=== PATIENT | female | born 1995 | race Caucasian/White ===

== ENCOUNTER 2017-01-30 11:21 | Emergency (ER) | payer SELFPAY ==
[~2017-01-30] VITALS: Ht 160 cm; Wt 102.5 kg
[~2017-01-30 11:21] MED LIST: IBUP-1542 PO; NITR-58 PO
[2017-01-30 11:29] VITALS: Ht 160 cm; Wt 102.5 kg
--- NOTE | 2017-01-30 12:08 | ERD ---
ER Documentation Chief Complaint Date/Time DATE: 01/30/17 TIME: 12:07 Chief Complaint VAG BLEED X 3 MONTHS HPI This 21-year-old female who presents the emergency department today complaining of vaginal bleeding for the past 3 months. Patient states that for the past year she has had irregular menstrual cycles and vaginal bleeding. States that she went [facility] months ago and was told she had PID was given antibiotics. States that her bleeding did slow down somewhat after that. States she has not been able to get into see her press writer. States she has one sexual partner. Denies any pain currently. Denies any dysuria, fevers or chills. ROS All systems reviewed and are negative except as per history of present illness. Medications Home Meds Active Scripts Naproxen* (Naprosyn*) 500 Mg Tablet, 500 MG PO BID Y for PAIN AND/OR INFLAMMATION, #30 TAB Prov:KENYON HINOJOSA PA-C 01/30/17 Ibuprofen* (Motrin*) 600 Mg Tab, 600 MG PO Q6H Y for PAIN AND OR ELEVATED TEMP, #30 Prov:CRYSTAL CARRILLO RECREATION PROGRAMMER 04/06/15 Nitrofurantoin Monohyd Macrocr* (Macrobid*) 100 Mg Capsr, 100 MG PO BID for 7 Days, CAP Prov:CRYSTAL CARRILLO RECREATION PROGRAMMER 04/06/15 Allergies Allergies: Coded Allergies: No Known Allergy (Unverified , 04/06/15) PMhx/Soc Hx Alcohol Use: No Hx Substance Use: No Hx Tobacco Use: No Physical Exam Vitals Vital Signs Date Time Temp Pulse Resp B/P Pulse Ox O2 Delivery O2 Flow Rate FiO2 01/30/17 11:29 98.4 96 18 133/74 96 Physical Exam Const: Obese, no acute distress Head: Atraumatic Eyes: Normal Conjunctiva ENT: Normal External Ears, Nose and Mouth. Neck: Full range of motion..~ No meningismus. Resp: Clear to auscultation bilaterally Cardio: Regular rate and rhythm, no murmurs Abd: Soft, mild pelvic tenderness, non distended. Normal bowel sounds. No specific tenderness McBurney Skin: No petechiae or rashes Back: No midline or flank tenderness Ext: No cyanosis, or edema Neur: Awake and alert Psych: Normal Mood and Affect Result Diagram: 01/30/17 1230 Results 24 hrs Laboratory Tests Test 01/30/17 12:30 01/30/17 12:49 White Blood Count 7.410^3/ul Red Blood Count 4.5910^6/ul Hemoglobin 12.1g/dl Hematocrit 37.5% Mean Corpuscular Volume 81.7fl Mean Corpuscular Hemoglobin 26.4pg Mean Corpuscular Hemoglobin Concent 32.3g/dl Red Cell Distribution Width 14.4% Platelet Count 22511^3/UL Mean Platelet Volume 11.1fl Neutrophils % 49.7% Lymphocytes % 41.6% Monocytes % 5.3% Eosinophils % 2.8% Basophils % 0.5% Nucleated Red Blood Cells % 0.0/100WBC Neutrophils # 3.710^3/ul Lymphocytes # 3.110^3/ul Monocytes # 0.410^3/ul Eosinophils # 0.210^3/ul Basophils # 0.010^3/ul Nucleated Red Blood Cells # 0.010^3/ul Bedside Urine pH (LAB) 7.0 Bedside Urine Protein (LAB) 3+ Bedside Urine Glucose (UA) 0.1% Bedside Urine Ketones (LAB) Negative Bedside Urine Blood 3+ Bedside Urine Nitrite (LAB) Negative Bedside Urine Leukocyte Esterase (L Negative DIAGNOSTIC IMAGING REPORT Patient: KVNG NEGRO : 1995 Age: 21 Sex: F MR #: [id number] DOS: 01/30/17 0000 Ordering MD: KENYON HINOJOSA PA-C Location: [facility] Room/Bed: PROCEDURE: US Pelvis. CLINICAL INDICATION: 3-month history of vaginal bleeding. TECHNIQUE: Multiple sonographic images of the pelvis were obtained utilizing a transabdominal and endovaginal technique. The images were reviewed on a PACS workstation. COMPARISON: 04/06/2015. FINDINGS: The uterus is visualized and measures 7.3 x 3.5 x 4.1 cm. The endometrial echo complex is normal and measures 8.0 mm. There is no evidence for free fluid. The right ovary has a normal echotexture and measures 3.1 x 1.7 x 2.0 cm. The left ovary has a normal echotexture and measures 4.0 x 2.8 x 3.6 cm. There is a 3.5 x 2.7 x 2.5 cm septated left ovarian cyst. No adnexal masses are noted. IMPRESSION: 1. 3.5 x 2.7 x 2.5 cm septated left ovarian cyst. 2. The uterus is unremarkable in appearance. RPTAT: [facility] Benny Kariim Physician Date Time Electronically viewed and signed by Benny Karimi Physician on 01/30/2017 13: 15 JH/ CC: KEYNON HINOJOSA PA-C Procedures/MDM Is a 21-year-old female presents to the emergency department today complaining of vaginal bleeding for the past 3 months. Patient had been seen at [facility] months ago but never followed up with an press writer. Given patient's complaints I did obtain laboratory work as well as imaging CBC shows no elevated white blood cell count. She is not anemic. Platelets are within normal limits. UA is negative for infection. There is 3+ blood. There is a small amount of glucose. Negative ketones. Urine test is negative Non-OB ultrasound shows a 3.5 x 2.72.5 cm septated left ovarian cyst. There is no evidence or free fluid. There are no adnexal masses. Uterus is unremarkable. I have low suspicion for ectopic , tubo-ovarian abscess, ovarian torsion. Patient has no indication of anemia. There is no indication for transfusion. I explained to the patient that she does need to follow-up with her [facility]. Patient denies any pain currently. She will be given a prescription for Naprosyn for any pain that she has. Patient symptoms at this time is consistent with dysfunctional uterine bleeding. At this time the patient is stable for discharge and outpatient management. Patient should follow up with their PCP in the next 1-2 days. They may return to the emergency department sooner for any persistent or worsening of symptoms. Patient understood and agreed with the plan. Departure Diagnosis: Primary Impression: Vaginal bleeding Condition: Fair KENYON HINOJOSA PA-C Jan 30, 2017 12:08
[2017-01-30 12:44] LABS: URINE BLOOD (Dip) POC 3+ (NEGATIVE)
[2017-01-30 12:54] LABS: BASOPHILS % 0.5 % (0.0-2.0); EOSINOPHILS # 0.2 10^3/ul (0.0-0.5); EOSINOPHILS % 2.8 % (0.0-7.0); HEMATOCRIT 37.5 % (37.0-47.0); HEMOGLOBIN 12.1 g/dl (12.0-16.0); LYMPHOCYTES # 3.1 10^3/ul (0.8-2.9); LYMPHOCYTES % 41.6 % (15.0-51.0); MEAN CORPUSCULAR HEMOGLOBIN 26.4 pg (29.0-33.0); MEAN CORPUSCULAR HGB CONC 32.3 g/dl (32.0-37.0); MEAN CORPUSCULAR VOLUME 81.7 fl (82.0-101.0); MEAN PLATELET VOLUME 11.1 fl (7.4-10.4); MONOCYTE # 0.4 10^3/ul (0.3-0.9); MONOCYTES % 5.3 % (0.0-11.0); NEUTROPHIL # 3.7 10^3/ul (1.6-7.5); NEUTROPHILS % 49.7 % (39.0-77.0); PLATELET COUNT 364 10^3/UL (140-415); RED BLOOD COUNT 4.59 10^6/ul (4.20-5.40); RED CELL DISTRIBUTION WIDTH 14.4 % (11.5-14.5); WHITE BLOOD COUNT 7.4 10^3/ul (4.8-10.8)
--- NOTE | 2017-01-30 13:16 | RADRPT ---
PROCEDURE: US Pelvis. CLINICAL INDICATION: 3-month history of vaginal bleeding. TECHNIQUE: Multiple sonographic images of the pelvis were obtained utilizing a transabdominal and endovaginal technique. The images were reviewed on a PACS workstation. COMPARISON: 04/06/2015. FINDINGS: The uterus is visualized and measures 7.3 x 3.5 x 4.1 cm. The endometrial echo complex is normal and measures 8.0 mm. There is no evidence for free fluid. The right ovary has a normal echotexture and measures 3.1 x 1.7 x 2.0 cm. The left ovary has a normal echotexture and measures 4.0 x 2.8 x 3.6 c m. There is a 3.5 x 2.7 x 2.5 cm septated left ovarian cyst. No adnexal masses are noted. IMPRESSION: 1. 3.5 x 2.7 x 2.5 cm septated left ovarian cyst. 2. The uterus is unremarkable in appearance. RPTAT: [facility] Physician César Date Time Electronically viewed and signed by Physician César on 01/30/2017 13:15 /
[2017-01-30] MEDS ORDERED: NAPR-260 PO (14:01)
[2017-01-30 15:39] VITALS: BP 135/72; PULSE 75; RESP 18; TEMP 98.4
[2017-02-04 16:11] LABS: URINE BLOOD (Dip) POC 3+ (NEGATIVE)
== END 2017-01-30 15:41 | disposition home or self-care (01) ==
LOC: FTE 11:21
DX: N93.8 Other specified abnormal uterine and vaginal bleeding (principal); R10.2 Pelvic and perineal pain
CPT/HCPCS: 76830; 76856; 81003; 85025

== ENCOUNTER 2017-03-24 03:22 | Emergency (ER) | payer BC ==
[~2017-03-24] VITALS: Ht 160 cm; Wt 100.0 kg
[~2017-03-24 03:22] MED LIST changes: +NAPR-260 PO
[2017-03-24 03:29] VITALS: Ht 160 cm; Wt 100.0 kg
--- NOTE | 2017-03-24 03:55 | ERD ---
ER Documentation Chief Complaint Date/Time DATE: 03/24/17 TIME: 03:52 Chief Complaint c/o pelvic pain x 1 wk. Had bloody discharge this a.m. x 1 episode. HPI 1-year-old female presents here to emergency department for complaints of pelvic pain for 1 week. Patient was diagnosed to have an ovarian cyst. Patient has had prolonged menstruation, is currently on control to control her bleeding. Patient's complaint of pelvic pain, cramping pain, 8/10 scale, intermittent pain, not as 4/10 scale. Patient started to pass a past a tissue from her vaginal area this morning, with blood. Patient denies any fever chills. Patient denies any hematuria or dysuria. ROS All systems reviewed and are negative except as per history of present illness. Medications Home Meds Active Scripts Naproxen* (Naprosyn*) 500 Mg Tablet, 500 MG PO BID Y for PAIN AND/OR INFLAMMATION, #30 TAB Prov:KENYON HINOJOSA PA-C 01/30/17 Ibuprofen* (Motrin*) 600 Mg Tab, 600 MG PO Q6H Y for PAIN AND OR ELEVATED TEMP, #30 Prov:CRYSTAL CARRILLO. PHYSICIAN CODER 04/06/15 Nitrofurantoin Monohyd Macrocr* (Macrobid*) 100 Mg Capsr, 100 MG PO BID for 7 Days, CAP Prov:CRYSTAL CARRILLO. PHYSICIAN CODER 04/06/15 Allergies Allergies: Coded Allergies: No Known Allergy (Unverified , 04/06/15) PMhx/Soc Medical and Surgical Hx: pt denies Medical Hx, pt denies Surgical Hx Hx Alcohol Use: No Hx Substance Use: No Hx Tobacco Use: No Smoking Status: Never smoker FmHx Family History: No coronary disease, No diabetes, No other Physical Exam Vitals Vital Signs Date Time Temp Pulse Resp B/P Pulse Ox O2 Delivery O2 Flow Rate FiO2 03/24/17 03:29 98.8 116 20 143/80 98 Physical Exam GENERAL: The patient is well developed and appropriate for usual state of health, in no apparent distress. CHEST: Clear to auscultation bilaterally. There are no rales, wheezes or rhonchi. HEART: Regular rate and rhythm. No murmurs, clicks, rubs or gallops. No S3 or S4. ABDOMEN: Soft, nontender and nondistended. Good bowel sounds. No rebound or guarding. No gross peritonitis. No gross organomegaly or masses. No Roque sign or McBurney point tenderness. BACK: No midline or flank tenderness. EXTREMITIES: Equal pulses bilaterally. There is no peripheral clubbing, cyanosis or edema. No focal swelling or erythema. Full range of motion. Grossly neurovascularly intact. NEURO: Alert and oriented. Cranial nerves 2-12 intact. Motor strength in all 4 extremities with 5/5 strength. Sensation grossly intact. Normal speech and gait. SKIN: There is no apparent rash or petechia. The skin is warm and dry. HEMATOLOGIC AND LYMPHATIC: There is no evidence of excessive bruising or lymphedema. No gross cervical, axillary, or inguinal lymphadenopathy. Result Diagram: 03/24/17 0407 Results 24 hrs Laboratory Tests Test 03/24/17 04:07 White Blood Count 14.810^3/ul Red Blood Count 4.5810^6/ul Hemoglobin 11.5g/dl Hematocrit 36.6% Mean Corpuscular Volume 79.9fl Mean Corpuscular Hemoglobin 25.1pg Mean Corpuscular Hemoglobin Concent 31.4g/dl Red Cell Distribution Width 13.9% Platelet Count 52969^3/UL Mean Platelet Volume 11.0fl Neutrophils % 80.1% Lymphocytes % 13.5% Monocytes % 5.6% Eosinophils % 0.2% Basophils % 0.3% Nucleated Red Blood Cells % 0.0/100WBC Neutrophils # 11.810^3/ul Lymphocytes # 2.010^3/ul Monocytes # 0.810^3/ul Eosinophils # 0.010^3/ul Basophils # 0.010^3/ul Nucleated Red Blood Cells # 0.010^3/ul Urine Color YELLOW Urine Clarity SLIGHTLY CLOUDY Urine pH 5.0 Urine Specific Martha 1.023 Urine Ketones NEGATIVEmg/dL Urine Nitrite NEGATIVEmg/dL Urine Bilirubin NEGATIVEmg/dL Urine Urobilinogen NEGATIVEmg/dL Urine Leukocyte Esterase NEGATIVELeu/ul Urine Microscopic RBC > 182/HPF Urine Microscopic WBC 5/HPF Urine Squamous Epithelial Cells FEW/HPF Urine Mucus FEW/HPF Urine Hemoglobin 3+mg/dL Urine Glucose NEGATIVEmg/dL Urine Total Protein 2+mg/dl Beta HCG, Quantitative < 2.4mIU/ml PROCEDURE: US Pelvis CLINICAL INDICATION: Vaginal bleeding TECHNIQUE: Sonographic evaluation of the pelvis was performed utilizing both transabdominal and transvaginal technique. Curved array transabdominal transducer technique as well as a high frequency endovaginal probe was utilized. Images were reviewed on the high-resolution PACS workstation. COMPARISON: Pelvic ultrasound dated 01/30/2017 FINDINGS: The uterus is normal in size, echogenicity, and morphology measuring 9.1 x 4.2 x 6.4 cm in dimension. The uterus is anteverted in normal position. The endometrium is normal for a menstrual age female measuring 6.0 mm in diameter. The normal trilaminar stripe of the endometrium is preserved. The right ovary measures 2.6 x 1.7 x 2.0 cm in dimension. The left ovary measures 3.2 x 2.7 x 2.9 cm in dimension. There is a simple appearing 2.4 cm left ovarian cyst. The ovaries are symmetric in size, echogenicity, and morphology. Normal Doppler flow is demonstrated to both ovaries. There are no adnexal masses. There is no significant free fluid in the pelvis. IMPRESSION: Unremarkable ultrasound of the pelvis. RPTAT: HH .Renu Boudreaux MD, MD Date Time Electronically viewed and signed by .Renu Boudreaux MD, MD on 03/24/2017 05 :07 .G/ CC: TIANNA ESPINOZA PHYSICIAN CODER Procedures/MDM Medical Decision Making: Symptoms of pelvic pain most likely is consistent with the passing of possible ovarian cyst. The tissue that she passed most likely is ovarian cyst, it is almost the same size of the previously seen ovarian cyst in the ultrasound. there is low suspicion for abdominal emergencies at this time. Patients abdominal exam is normal at this time. Patients radiology exam does not show any abdominal emergencies at this time. There is low suspicion for appendicitis, cholecystitis, abdominal aortic aneurysms or peritonitis at this time. There is low suspicion for sepsis. Patient appears well and is hemodynamically stable. Disposition: Home. Condition: Stable Prescription for Ibuprofen, [place] Instructions: Patient is advised to take medications as prescribed. Patient is advised to rest, increase fluid intake and do brat diet for next 1-2 days and progress as tolerated. Patient is advised that if symptoms are worse, severe abdominal pain, uncontrolled vomiting, high fever, severe flank pain, worst signs and symptoms, to return to the emergency department immediately. Otherwise, patient can follow up with primary care doctor in 5-7 days. Disclaimer: Inadvertent spelling and grammatical errors are likely due to EHR/ dictation software use and do not reflect on the overall quality of patient care. Also, please note that the electronic time recorded on this note does not necessarily reflect the actual time of the patient encounter. How Departure Diagnosis: Primary Impression: Pelvic pain Additional Impression: Vaginal bleeding Condition: Stable Patient Instructions: Pelvic Pain, Unknown Cause Additional Instructions: Patient is advised to take medications as prescribed. Patient is advised to rest , increase fluid intake and do brat diet for next 1-2 days and progress as tolerated. Patient is advised that if symptoms are worse, severe abdominal pain , uncontrolled vomiting, high fever, severe flank pain, worst signs and symptoms , to return to the emergency department immediately. Otherwise, patient can follow up with primary care doctor in 5-7 days. TIANNA ESPINOZA NP Mar 24, 2017 03:55
[2017-03-24 04:26] LABS: BASOPHILS % 0.3 % (0.0-2.0); EOSINOPHILS % 0.2 % (0.0-7.0); HEMATOCRIT 36.6 % (37.0-47.0); HEMOGLOBIN 11.5 g/dl (12.0-16.0); LYMPHOCYTES % 13.5 % (15.0-51.0); MEAN CORPUSCULAR HEMOGLOBIN 25.1 pg (29.0-33.0); MEAN CORPUSCULAR HGB CONC 31.4 g/dl (32.0-37.0); MEAN CORPUSCULAR VOLUME 79.9 fl (82.0-101.0); MONOCYTE # 0.8 10^3/ul (0.3-0.9); MONOCYTES % 5.6 % (0.0-11.0); NEUTROPHIL # 11.8 10^3/ul (1.6-7.5); NEUTROPHILS % 80.1 % (39.0-77.0); PLATELET COUNT 366 10^3/UL (140-415); RED BLOOD COUNT 4.58 10^6/ul (4.20-5.40); RED CELL DISTRIBUTION WIDTH 13.9 % (11.5-14.5); WHITE BLOOD COUNT 14.8 10^3/ul (4.8-10.8)
[2017-03-24 04:58] LABS: ADD UMIC YES; UR ASCORBIC ACID NEGATIVE (NEGATIVE); UR BILIRUBIN (Dip) NEGATIVE (NEGATIVE); UR BLOOD (Dip) 3+ mg/dL (NEGATIVE); UR CLARITY SLIGHTLY CLOUDY (CLEAR); UR COLOR YELLOW (YELLOW); UR GLUCOSE (Dip) NEGATIVE (NEGATIVE); UR KETONES (Dip) NEGATIVE (NEGATIVE); UR LEUKOCYTE ESTERASE (Dip) NEGATIVE Leu/ul (NEGATIVE); UR MUCUS FEW /HPF (NONE SEEN); UR NITRITE (Dip) NEGATIVE (NEGATIVE); UR RBC > 182 /HPF (0-5); UR SPECIFIC GRAVITY (Dip) 1.023 (1.003-1.030); UR SQUAMOUS EPITHELIAL CELL FEW /HPF (FEW); UR TOTAL PROTEIN (Dip) 2+ mg/dl (NEGATIVE); UR UROBILINOGEN (Dip) NEGATIVE (NEGATIVE)
--- NOTE | 2017-03-24 05:07 | RADRPT ---
PROCEDURE: US Pelvis CLINICAL INDICATION: Vaginal bleeding TECHNIQUE: Sonographic evaluation of the pelvis was performed utilizing both transabdominal and tr ansvaginal technique. Curved array transabdominal transducer technique as well as a high frequency endovaginal probe was utilized. Images were reviewed on the high-resolution PACS workstation. COMPARISON: Pelvic ultrasound dated 01/30/2017 FINDINGS: The uterus is normal in size, echogenicity, and morphology measuring 9.1 x 4.2 x 6.4 cm in dimension . The uterus is anteverted in normal position. The endometrium is normal for a menstrual age fema le measuring 6.0 mm in diameter. The normal trilaminar stripe of the endometrium is preserved. The right ovary measures 2.6 x 1.7 x 2.0 cm in dimension. The left ovary measures 3.2 x 2.7 x 2.9 c m in dimension. There is a simple appearing 2.4 cm left ovarian cyst. The ovaries are symmetric in s ize, echogenicity, and morphology. Normal Doppler flow is demonstrated to both ovaries. There are no adnexal masses. There is no significant free fluid in the pelvis. IMPRESSION: Unremarkable ultrasound of the pelvis. RPTAT: HH .Renu Boudreaux MD, Date Time Electronically viewed and signed by .Renu Boudreaux MD, on 03/24/2017 05:07 .Rohini/
[2017-03-24] MEDS ORDERED: IBUP-1542 PO (05:16)
[2017-03-24] MEDS ORDERED: HYDR-906 PO (05:16)
[2017-03-24 05:27] VITALS: BP 130/75; PULSE 77; RESP 18; TEMP 98.3
== END 2017-03-24 05:30 | disposition home or self-care (01) ==
LOC: FTE 03:22
DX: N93.8 Other specified abnormal uterine and vaginal bleeding (principal)
CPT/HCPCS: 36415; 76830; 76856; 81001; 84702; 85025; 88305

== ENCOUNTER 2017-08-01 12:03 | Emergency (ER) | END 2017-08-01 17:43 | disposition left against medical advice (07) ==

== ENCOUNTER 2019-04-01 16:03 | Emergency (ER) | payer SELFPAY ==
[~2019-04-01] VITALS: Ht 165.1 cm; Wt 91.8 kg
[~2019-04-01 16:03] MED LIST changes: +ACET325T33 PO; +FAMO-96 PO; +HYDR-4011 PO; -NAPR-260 PO; +NAPR-985 PO; +ONDA4TAB14 PO; +PREN1TAB13 PO
[2019-04-01 16:18] VITALS: BP 132/67; PULSE 102; RESP 18; Ht 165.1 cm; Wt 91.8 kg
== END 2019-04-01 17:17 | disposition home or self-care (01) ==
LOC: FTE 16:03 → E/R 17:17
DX: O26.892 Other specified pregnancy related conditions, second trimester (principal); R00.2 Palpitations; Z3A.15 15 weeks gestation of pregnancy
CPT/HCPCS: 93005